=== PATIENT | female | born 1965 | race Caucasian/White ===

== ENCOUNTER → 2016-12-12 | Outpatient (CLI) | payer OTHER ==
--- NOTE | 2016-12-12 16:27 | RADIOLOGY REPORT PS360 ---
BONE DENSITOMETRY(HIP:LT SPINE HISTORY: POST MENMOPAUSAL ORDERING PHYSICIAN: Nico Prasad MD PATIENT AGE: 51 years COMPARISON: None FINDINGS: The BMD measured at the left femoral neck is 0.936 g/cm squared with a T score of -0.7. This is considered normal according to the World Health Organization criteria. Fracture risk is low. Suggest follow-up exam December 2018. The bone density of the lumbar spine from L1 to L4 has a T score 1.1 which is normal. IMPRESSION: Normal bone density
--- NOTE | 2016-12-15 08:56 | RADIOLOGY REPORT PS360 ---
DIG MAMM-SCREEN HELLEN W/CAD CAD Screening COMPARISON: Digital mammograms 11/23/2014 and additional views right breast 12/04/2014 and digital mammograms 12/10/2015 INDICATION: Is a history of breast cancer patient's cousin and an patient's maternal grandmother. TECHNIQUE: Standard CC and MLO images were obtained. R2 CAD reviewed. FINDINGS: Prominent diffuse heterogenic fibroglandular densities are seen throughout both breast somewhat lessening the sensitivity of mammography. There are stable asymmetric density upper outer quadrant right breast. There is no suspicious lesion and no suspicious microcalcifications. IMPRESSION: Stable exam with no suspicious lesion seen recommend yearly follow-up BI-RADS CATEGORY: 2_Benign RECOMMENDED FOLLOWUP: 12M 12 MONTH FOLLOW-UP (A letter has been sent to the patient regarding results of the study.)
== END ==
LOC: RAD 13:30
DX: Z72.51 High risk heterosexual behavior (principal); Z78.0 Asymptomatic menopausal state; Z13.820 Encounter for screening for osteoporosis
CPT/HCPCS: G0202

== ENCOUNTER 2017-02-01 17:04 | Emergency (ER) | payer OTHER ==
[~2017-02-01] VITALS: Ht 152.4 cm; Wt 46.7 kg
--- OUTSIDE RECORDS SUMMARY | 2017-02-01 17:08 | External Medical Summary Rpt | CCD ---
Author Author HECTOR Address Unknown Phone [email or web address] Purpose Continuity of Care Document - through 2016
--- OUTSIDE RECORDS SUMMARY | 2017-02-01 17:08 | External Medical Summary Rpt | CCD ---
Author Author , HECTOR Organization HECTOR Address Unknown Phone [email or web address] Immunization Name Date Rout CVX Reac Dose Comm Prov Is Faci e tion ent ider Refu lity Give sed n Zost 11-0 Subc 121 1 mL Hist [facility] No RITE er 5-20 utan oric [facility]0 17 eous al AYMA 3938 Info N rmat ion - Sour ce Unsp ecif ied Tdap 11-0 Intr 115 0.5 Hist [facility] No RITE , 5-20 amus mL oric [facility] Adso 17 cula al AYMA 3938 rbed r Info N rmat ion - Sour ce Unsp ecif ied Infl 10-2 Intr 140 0.5 Hist [facility] No RITE uenz 8-20 amus mL oric [facility] a, 17 cula al AYMA 3914 P-Fr r Info N ee rmat ion - Sour ce Unsp ecif ied Infl 09-1 Intr 150 0.5 Hist [facility] No RITE uenz 1-20 amus mL oric [facility] a 16 cula al AYMA 3938 Quad r Info N Inj rmat ion - Sour ce Unsp ecif ied
--- OUTSIDE RECORDS SUMMARY | 2017-02-01 17:08 | External Medical Summary Rpt | CCD ---
Author Author Conduent Organization Con[employer]ent Address Unknown Phone Unavailable Purpose Continuity of Care Document - through 2016
--- OUTSIDE RECORDS SUMMARY | 2017-02-01 17:08 | External Medical Summary Rpt ---
Author Author RAMESH Carson, [employer] Organization [employer] Address Unknown Phone Unavailable
--- OUTSIDE RECORDS SUMMARY | 2017-02-01 17:08 | External Medical Summary Rpt | CCD ---
Author Author HECTOR Address Unknown Phone Purpose Continuity of Care Document - through 2016
--- OUTSIDE RECORDS SUMMARY | 2017-02-01 17:08 | External Medical Summary Rpt | CCD ---
Author Author , HECTOR Organization HECTOR Address Unknown Phone Immunization Name Date Rout CVX Reac Dose [...]
[2017-02-01] MEDS ORDERED: SYNTHROID0.125 M1 NG (17:45)
[2017-02-01] MEDS ORDERED: PREMARIN V0.625 MG/G TD (17:46)
[2017-02-01 18:05] VITALS: BP 131/81
[2017-02-01] MEDS ORDERED: PREDNISONE 20MG20 MG PO (18:05)
[2017-02-01] MEDS ORDERED: PROMETHAZINE D118 ML PO (18:05)
[2017-02-01] MEDS ORDERED: AUGMENTIN 875-1 EACH PO (18:05)
--- NOTE | 2017-02-01 18:05 | Urgent Treatment Center Report ---
History of Present Issue Date/Time Seen by Provider 02/01/17 1740 Visit Reason Pt arrived:Walked Presenting Problem:PT IS C/O COUGH, CHEST CONGESTTON AND SINUS PRESSURE Location if Accident: Onset of symptoms date/time:/ or onset unknown for:MEDICAL HX UNKNOWN Have you (or family members/close friends) recently traveled outside the [place]? N If Yes, where/when: Have you had exposure to infectious disease within the past month? TB? Other? Specify: c/o "I think it is my sinuses". Started w/ sore throat 2-3 weeks ago. Developed into rhinorrhea, nasal congestion, sinus pressure. Seemed to be improving but never resolved. "I just kept thinking I could wait it out". Started to feel worse 2-3 days ago. Fatigue. Cough worse. Nonprod, hacking, dry, annoying, worse at night. Hasn't taken or tried anything yet. no fevers or aches. Source patient Exam Limitations no limitations ALLERGIES Coded Allergies: No Known Allergies (02/01/17) Home Medications Reported Medications Levothyroxine Sod (Synthroid) 0.125 MG NG DAILY ESTROGENS, CONJUGATED (Premarin) 0.625 MG TD DAILY History Medical History General CAD? No Angina: No GA: No Hypertension? No Hyperlipidemia? No CHF? No DVT? No PE? No COPD? No Asthma? Yes Anemia? No GERD? No Gastric ulcers? No GI Bleed? No Hernia? No Thyroid Problems? No Hypothyroidism? No CVA? No Seizures? No Diabetes? No Renal Insuffiency? No UTI? Yes Stones? Yes BPH? No GB Disease: Yes Nephritic Syndrome? No Asplenia? No Hepatitis? No Sickle Cell Disease? No Arthritis? No Migraines? No Cataracts? No Glaucoma? No MRSA? No HIV? No TB? No Anxiety? No Depression? No Cancer? No More? No Immunization HX DT/Tetanus 5-10 Years Ago Surgical Hx Previous Surgery?Y X2 Hysterect Appendix Family History Family HX Diabetes No CAD Yes Hypertension No Hyperlipidemia No Cancer Yes TB No Social History Smoking Hx Smoker: Never Smoker Tobacco: No Alcohol Alcohol: No Review of Systems All Other Systems Reviewed and Negative Constitutional see HPI Eyes denies drainage ENT see HPI. denies: ear pain, ear discharge, throat pain. Respiratory see HPI, denies shortness of breath, denies wheezing Cardiovascular denies chest pain Gastrointestinal denies no symptoms reported Skin denies rash Psychiatric/Neurological denies headache Physical Exam Vital Signs Vital Signs Date Time Temp Pulse Resp B/P Pulse O2 O2 Flow FiO2 Ox Delivery Rate 02/01 1741 97.9 83 20 131/81 96 General Appearance normal appearance, no apparent distress (frequent cough) Eye Exam - bilateral eye normal exam Ear, Nose, Throat sheila EAC, TMs and pharnyx unremarkable, thick nasal drainage, sheila maxillary sinus tenderness Neck non-tender, supple Respiratory Status Yes: trachea midline, chest symmetrical, non productive cough (frequent, dry, hacking,). No: respiratory distress, use of accessory muscles, pain on inspiration, pain on expiration. Lung Sounds anterior: lungs clear. posterior: lungs clear. bilateral: lungs clear. Cardiovascular regular rate/rhythm, no peripheral edema, no murmur Neurologic alert, oriented x 3 Skin normal color, warm/dry Lymphatic no adenopathy Medical Decision Making LABS/Meds/Orders Pt receiving controlled substance in ED? No Results/Orders Orders Procedure Date/time Status CHEST(2 VIEWS-NOT PORTABLE) 02/02 [address] [facility] Progress Notes Date 02/01/17 Time 1755 Comment Suggested tessalon perles for dry hacking cough. Pt declined as she has taken them in the past for same symptoms without improvement. Prefers something to take at night to help with sleep. Departure Departure Time of Disposition 180 Disposition DC Home or Self Care(routine) Clinical Impression Primary Impression: Maxillary sinusitis Qualifiers: Chronicity: acute Recurrence: non-recurrent Qualified Code: J01.00 - Acute maxillary sinusitis, unspecified Secondary Impressions: Cough Condition STABLE Referrals Suman CURRAN,A.C. (Family) IMMEDIATELY for new or worsening symptoms OR no noticeable improvement over the next 72 hours. 911 for difficulty breathing or swallowing. Patient Instructions DI for Cough -- Adult, DI for Sinusitis Additional Instructions augmentin can cause GI side effects. Probiotics help prevent these symptoms. * Start antibiotic and be sure to take as ordered for the FULL length of time even if you feel better. Sinus infections do not get better overnight. It may take 2-3 days to notice much improvement so be sure to use conservative measures as discussed for symptoms. * OK to continue Sudafed. * Flonase 2 sprays each nostril daily to help with nasal congestion, sinus and ear pressure/inflammation * Lots of fluids * Sleep elevated * Humidifier/vaporizer * Promethazine DM cough syrup will cause drowsiness. Use it only at night. No driving, operating machinery or caring for small children after taking it. * Start steroid today. Helps with inflammation therefore, cough and wheezing. Follow directions on package. Rvwd side effects. Pt reports they have taken them before. Discharge Counseling Counseled pt/family regarding diagnosis, medications/RX, home care, follow up needs Prescriptions Current Visit Scripts Amoxicillin/Potassium Clav (Augmentin 875-125 Tablet) 1 EACH PO BID #20 TAB Prednisone (Prednisone 20MG) 20 MG PO BID #10 TAB PROMETHAZINE/DEXTROMETHORPHAN (Promethazine-Dm Syrup) 10 ML PO QHSP PRN cough #120 ML will cause drowsiness at 1805
== END 2017-02-01 18:06 | disposition home or self-care (01) ==
LOC: UTC 17:04
DX: J01.00 Acute maxillary sinusitis, unspecified (principal)